=== PATIENT | female | born 1985 | race African-American/Black ===

== ENCOUNTER 2019-05-19 12:26 | Observation (INO) | payer MEDICAID ==
[~2019-05-19] VITALS: Ht 165.1 cm; Wt 122.5 kg
[2019-05-19] MEDS ORDERED: ONDANSETRON HCL 4MG/2ML INJ IV NR (13:45)
[2019-05-19] MEDS ORDERED: LACTATED RINGERS 1,000 ML IV PRN (13:45)
[2019-05-19] MEDS ORDERED: GUAIFENESIN 200MG/10ML SUGAR FREE UDC PO NR (13:45)
[2019-05-19] MEDS ORDERED: GUAIFENESIN-DM 200MG-20MG/10ML UDC PO SCH (14:30)
== END 2019-05-19 15:17 | disposition home or self-care (01) ==
LOC: 8 EST LDRP 12:26
PROVIDERS: ADMIT Obstetrics & Gynecology; ATTEND Obstetrics & Gynecology
DX: O21.2 Late vomiting of pregnancy (principal); O26.893 Other specified pregnancy related conditions, third trimester; R10.9 Unspecified abdominal pain; Z3A.28 28 weeks gestation of pregnancy
CPT/HCPCS: 96361; 96374; 99281; G0378; J2405

== ENCOUNTER 2019-06-18 00:33 | Observation (INO) | payer MEDICAID ==
[~2019-06-18] VITALS: Ht 165.1 cm; Wt 122.5 kg
[2019-06-18] MEDS ORDERED: CALC-854 PO (01:50)
[2019-06-18] MEDS ORDERED: PNV1TABL76 PO (01:50)
[2019-06-18 02:06] LABS: CLARITY URINE CLEAR (CLEAR); COLOR URINE YELLOW (YELLOW); KETONES URINE NEGATIVE (NEGATIVE); LEUKOCYTE ESTERASE URINE NEGATIVE (NEGATIVE); NITRITE URINE NEGATIVE (NEGATIVE); OCCULT BLOOD URINE TRACE (NEGATIVE); PH URINE 6.5 (4.5-8.0); PROTEIN URINE NEGATIVE (NEGATIVE); SPECIFIC GRAVITY URINE 1.007 (1.005-1.030); UROBILINOGEN URINE 0.2 E.U./dL (0.2-1.0)
== END 2019-06-18 03:20 | disposition home or self-care (01) ==
LOC: 8 EST LDRP 00:33
PROVIDERS: ADMIT Obstetrics & Gynecology; ATTEND Obstetrics & Gynecology
DX: O46.93 Antepartum hemorrhage, unspecified, third trimester (principal); O26.893 Other specified pregnancy related conditions, third trimester; R10.30 Lower abdominal pain, unspecified; Z3A.33 33 weeks gestation of pregnancy
CPT/HCPCS: 81003; 82731; 99281; G0378

== ENCOUNTER 2019-08-05 11:04 | Observation (INO) | payer MEDICAID ==
[~2019-08-05] VITALS: Ht 165.1 cm; Wt 127.0 kg
[~2019-08-05 11:04] MED LIST: CALC-854 PO; PNV1TABL76 PO
== END 2019-08-05 12:45 | disposition home or self-care (01) ==
LOC: 8 EST LDRP 11:04
PROVIDERS: ADMIT Obstetrics & Gynecology; ATTEND Obstetrics & Gynecology
DX: O62.9 Abnormality of forces of labor, unspecified (principal); Z3A.39 39 weeks gestation of pregnancy
CPT/HCPCS: 99281; G0378